=== PATIENT | female | born 1965 | race Caucasian/White ===

== ENCOUNTER 2016-07-09 09:17 | Outpatient (CLI) | payer OTHER | END 2016-07-09 09:18 | disposition home or self-care (01) | DX: Z12.31 Encounter for screening mammogram for malignant neoplasm of breast (principal) ==

== ENCOUNTER 2016-07-26 09:26 | Emergency (ER) | payer OTHER ==
[2016-07-26] MEDS ORDERED: HYDROcod/ACETAM 5/325 MG TABLET ONE (12:23)
== END 2016-07-26 13:45 | disposition home or self-care (01) ==
DX: S93.511A Sprain of interphalangeal joint of right great toe, initial encounter (principal); X50.9XXA Other and unspecified overexertion or strenuous movements or postures, initial encounter; Y93.H2 Activity, gardening and landscaping; Y92.007 Garden or yard of unspecified non-institutional (private) residence as the place of occurrence of the external cause; Y99.8 Other external cause status
CPT/HCPCS: 73630; 99281; 99283; A9270

== ENCOUNTER 2016-08-21 08:32 | Day surgery (SDC) | payer OTHER ==
[2016-08-21] MEDS ORDERED: LACTATED RINGERS 1,000 ML IV ONE (08:59)
[2016-08-21] MEDS ORDERED: fentaNYL 250 MCG/5 ML VIAL IVP ONE (10:30)
[2016-08-21] MEDS ORDERED: MIDAZOLAM 2 MG/2 ML VIAL IVP ONE (10:30)
== END 2016-08-21 08:33 | disposition home or self-care (01) ==
PROC: 0DBN8ZX Excision of Sigmoid Colon, Via Natural or Artificial Opening Endoscopic, Diagnostic (ICD-10-PCS; 2016-08-21)
PROC: 0DBH8ZX Excision of Cecum, Via Natural or Artificial Opening Endoscopic, Diagnostic (ICD-10-PCS; principal; 2016-08-21 09:30)
DX: Z12.11 Encounter for screening for malignant neoplasm of colon (principal); D12.5 Benign neoplasm of sigmoid colon; D12.0 Benign neoplasm of cecum; K64.8 Other hemorrhoids; Z83.71 Family history of colonic polyps; E55.9 Vitamin D deficiency, unspecified; K21.9 Gastro-esophageal reflux disease without esophagitis; Z83.3 Family history of diabetes mellitus; F17.210 Nicotine dependence, cigarettes, uncomplicated
CPT/HCPCS: 45380; 45385; J3010; J7120

== ENCOUNTER 2017-07-02 12:00 | Outpatient (CLI) | payer OTHER | END 2017-07-02 12:01 | disposition home or self-care (01) | LOC: LAB.R 12:00 | PROVIDERS: ATTEND Physician Assistant Medical | DX: R10.9 Unspecified abdominal pain (principal) | CPT/HCPCS: 87086 ==

== ENCOUNTER 2017-07-02 14:59 | Outpatient (CLI) | payer OTHER ==
--- NOTE | 2017-07-03 09:04 | CT Report ---
DATE OF SERVICE: 07/02/[address] WITHOUT CONTRAST: 07/02/2017 COMPARISON: None INDICATION: Right flank pain. TECHNIQUE: Noncontrast axial imaging of the abdomen and pelvis with coronal and sagittal reformats. In accordance with CT protocol optimization, one or more of the following dose reduction techniques were utilized for this exam: Automated exposure control, adjustment of mA and/or KV based on patient size, or use of iterative reconstructive technique. FINDINGS: Limited lung bases are grossly unremarkable, apart from a small pulmonary cyst on the left. The liver, spleen, pancreas, and adrenal glands appear unremarkable on noncontrast imaging. The kidneys appear unremarkable without evidence of stones or mass in the absence of contrast. No hydronephrosis. No ureteral bladder stones are seen. No abdominal mass or adenopathy. No bone lesions. Dysplastic rib versus old left rib fracture is noted, however. No soft tissue abnormalities. IMPRESSION: There are no CT findings to suggest a cause of the patient's symptoms. TD: 07/02/2017 21:32 GERRI
== END 2017-07-02 15:00 | disposition home or self-care (01) ==
LOC: DI 14:59
PROVIDERS: ATTEND Physician Assistant Medical
DX: R10.9 Unspecified abdominal pain (principal)
CPT/HCPCS: 74176; 87086

== ENCOUNTER 2017-09-01 08:31 | Outpatient (CLI) | payer OTHER ==
--- NOTE | 2017-09-02 17:41 | Mammography Report ---
DIGITAL SCREENING MAMMOGRAM: 09/01/2017 CLINICAL INDICATION: A 52-year-old for screening. COMPARISON: 06/2016, 08/2014, 07/2008. TECHNIQUE: Routine CC and MLO projections were obtained of the breasts. FINDINGS: Parenchymal tissue within both breasts is heterogeneously dense, which may lower the sensitivity of mammography; however, there are no dominant masses, suspicious microcalcifications, or secondary signs of malignancy. In comparison to the previous studies, there are no significant changes. ASSESSMENT: NO MAMMOGRAPHIC EVIDENCE OF MALIGNANCY. NO SIGNIFICANT INTERVAL CHANGES. RECOMMENDATION: Screening mammography is recommended annually. BIRADS category 1 - negative. STANDARD QUALIFYING STATEMENTS: 1. This examination was reviewed with the aid of Computed-Aided Detection (CAD). 2. A negative or benign imaging report should not delay biopsy if clinically suspicious findings are present. Consider surgical consultation if warranted. More than 5% of cancers are not identified by imaging. 3. Dense breasts may obscure an underlying neoplasm. TD: 09/02/2017 17:40
== END 2017-09-01 08:32 | disposition home or self-care (01) ==
LOC: DI 08:31
PROVIDERS: ATTEND Physician Assistant Medical
DX: Z12.31 Encounter for screening mammogram for malignant neoplasm of breast (principal)
CPT/HCPCS: 77067

== ENCOUNTER 2017-09-21 09:00 | Outpatient (CLI) | payer OTHER ==
[2017-09-21 12:35] LABS: CHOL/HDL RATIO 5.4 (<4.4); CHOLESTEROL 249 mg/dL; HDL CHOLESTEROL 46 mg/dL; LDL CHOLESTEROL,CALCULATED 183 mg/dL; VLDL CHOLESTEROL 20 mg/dL
== END 2017-09-21 09:01 | disposition home or self-care (01) ==
LOC: LAB.WCP 09:00
PROVIDERS: ATTEND Physician Assistant Medical
DX: E78.5 Hyperlipidemia, unspecified (principal)
CPT/HCPCS: 36415; 80061; 83721

== ENCOUNTER 2017-09-28 09:29 | Outpatient (CLI) | payer OTHER ==
[2017-09-28 12:41] LABS: ALBUMIN 4.2 g/dL (3.2-5.5); ALBUMIN/GLOBULIN RATIO 1.3 (1.0-2.2); BILIRUBIN,TOTAL 0.5 mg/dL (0.2-1.0); CREATININE 0.9 mg/dL (0.4-1.0); TOTAL PROTEIN 7.5 g/dL (6.7-8.2)
== END 2017-09-28 09:30 | disposition home or self-care (01) ==
LOC: LAB.WCP 09:29
PROVIDERS: ATTEND Physician Assistant Medical
DX: R74.8 Abnormal levels of other serum enzymes (principal)
CPT/HCPCS: 36415; 80053

== ENCOUNTER 2019-01-11 11:32 | Outpatient (CLI) | payer OTHER ==
--- NOTE | 2019-01-11 14:51 | XRAY Report ---
Reason: ARTHRITIS, HAND Procedure Date: 01/11/2019 Accession Number: [id number] / [id number] Procedure: WCP - Hand 3 View RT CPT Code: FULL RESULT: EXAM: RIGHT HAND RADIOGRAPHY EXAM DATE: 01/11/2019 11:47 AM. CLINICAL HISTORY: Chronic pain. No known injury. COMPARISON: HAND 3 VIEW BILAT 07/01/2016 10:48 AM. TECHNIQUE: 3 views. FINDINGS: Bones: Normal. No fractures or bone lesions. Joints: Normal. No subluxations. Soft Tissues: Normal. No soft tissue swelling. IMPRESSION: Normal hand radiography. RADIA
== END 2019-01-11 11:33 | disposition home or self-care (01) ==
LOC: DI.WCP 11:32
PROVIDERS: ATTEND Physician Assistant Medical
DX: M19.041 Primary osteoarthritis, right hand (principal)

== ENCOUNTER 2019-01-11 11:32 | Outpatient (CLI) | payer OTHER ==
--- NOTE | 2019-01-11 14:51 | XRAY Report ---
Reason: ARTHRITIS, HAND Procedure Date: 01/11/2019 Accession Number: [id number] / [id number] Procedure: WCP - Foot 2 View LT CPT Code: FULL RESULT: EXAM: LEFT FOOT RADIOGRAPHY EXAM DATE: 01/11/2019 11:47 AM. CLINICAL HISTORY: Heel pain. COMPARISON: None. TECHNIQUE: 2 views. FINDINGS: Bones: Moderate inferior calcaneal spurring. No fractures or bone lesions. Joints: Normal. No subluxations. Soft Tissues: Normal. No soft tissue swelling. IMPRESSION: Inferior calcaneal spurring. RADIA
== END 2019-01-11 11:33 | disposition home or self-care (01) ==
LOC: DI.WCP 11:32
PROVIDERS: ATTEND Physician Assistant Medical
DX: M77.32 Calcaneal spur, left foot (principal); M19.041 Primary osteoarthritis, right hand

== ENCOUNTER 2019-01-24 10:09 | Outpatient (CLI) | payer OTHER ==
--- NOTE | 2019-01-25 11:50 | XRAY Report ---
Reason: HAND INFECTION Procedure Date: 01/24/2019 Accession Number: [id number] / [id number] Procedure: WCP - Hand 3 View RT CPT Code: FULL RESULT: EXAM: RIGHT HAND RADIOGRAPHY EXAM DATE: 01/24/2019 10:17 AM. CLINICAL HISTORY: HAND INFECTION. COMPARISON: HAND 3 VIEW RT 01/11/2019 11:34 AM. TECHNIQUE: 3 views. FINDINGS: Bones: No acute or healed fractures. No periostitis or erosive changes. Joints: Normal. No subluxations. Soft Tissues: Swelling and subcutaneous emphysema noted at the base of the right. No unexpected radiopaque foreign bodies. IMPRESSION: 1. No fracture or malalignment. 2. Soft tissue swelling and subcutaneous emphysema at the base of the right thumb. No neck activity Pe from bodies. 3. No radiographic findings concerning for osteomyelitis. 3. If patient remains symptomatic, recommend follow up in 10-14 days. RADIA
== END 2019-01-24 10:10 | disposition home or self-care (01) ==
LOC: DI.WCP 10:09
PROVIDERS: ATTEND Physician Assistant
DX: L08.9 Local infection of the skin and subcutaneous tissue, unspecified (principal); M79.89 Other specified soft tissue disorders

== ENCOUNTER 2019-11-29 09:16 | Outpatient (CLI) | payer OTHER ==
[2019-11-29] MEDS ORDERED: GADOBUTROL 7.5 MMOL/7.5 ML VIAL ONE (09:30)
[2019-11-29] MEDS ORDERED: BUFFERED LIDOCAINE 10 ML SYRINGE ONE (09:30)
[2019-11-29] MEDS ORDERED: IOPAMIDOL-370 100 ML VIAL IVP ONE (10:31)
[2019-11-29] MEDS ORDERED: BUFFERED LIDOCAINE 10 ML SYRINGE IU ONE ×2 (10:31)
[2019-11-29] MEDS ORDERED: GADOBUTROL 7.5 MMOL/7.5 ML VIAL IVP ONE (10:31)
--- NOTE | 2019-11-29 15:40 | MRI Report ---
Reason: RT KNEE PAIN Procedure Date: 11/29/2019 Accession Number: [id number] / [id number] Procedure: MRI - Arthrogram Knee RT CPT Code: Final Report FULL RESULT: PROCEDURE: Arthrogram Knee RT INDICATIONS: RT KNEE PAIN TECHNIQUE: After the administration of 30 mL of dilute intra-articular Gadolinium contrast, sagittal T1 spin echo with fat saturation and PD fast spin echo with fat saturation, coronal T1 spin echo with and without fat saturation, coronal T2 fast spin echo with fat saturation, axial PD fast spin echo with fat saturation through the knee. COMPARISON: None available. FINDINGS: Image quality: There is mild motion artifact. Menisci: There is a vertically oriented longitudinal tear in the posterior horn of the medial meniscus. Mild radial tearing is also demonstrated along the free edge in the posterior horn. There is degenerative signal along the free edge in the body of the lateral meniscus suggestive of mild degenerative tearing. The meniscal root ligaments appear intact. Cruciate ligaments: The anterior and posterior cruciate ligaments appear intact. Medial structures: The medial collateral ligament appears intact. The semimembranosus tendon insertions appear intact. Visualized portions of the pes anserinus tendons appear normal. No abnormal bursal fluid. Lateral structures: The fibular collateral ligament and biceps femoris tendon appear intact. The popliteal tendon and the meniscofemoral ligaments appear intact. Anterior structures: The quadriceps and patellar tendons appear intact. Patellar alignment is normal. No femoral trochlear dysplasia or ventral trochlear prominence. No edema in the infrapatellar fat pad. There is mild prepatellar edema. Bones and cartilage: No bone marrow contusions or fractures. There is mild to moderate cartilage thinning within the medial compartment with superficial chondral fraying. In the lateral compartment, there is mild superficial chondral irregularity. In the patellofemoral compartment, there is also mild superficial chondral irregularity. Joint space: No suspicious filling defects within the joint space to suggest a joint body. No Magaña?s cyst. Normal appearing synovial plicae are incidentally noted. IMPRESSION: 1. Complex tearing of the posterior horn of the medial meniscus as described. Mild degenerative tearing along the free edge of the lateral meniscus also demonstrated. 2. Mild cartilage degeneration, most prominent in the medial compartment. Reviewed by: Warren Pereyra MD on 11/29/2019 3:39 PM PDT Approved by: Warren Pereyra MD on 11/29/2019 3:39 PM PDT Station ID: [id number]
--- NOTE | 2019-11-29 17:21 | XRAY Report ---
Reason: RT KNEE PAIN Procedure Date: 11/29/2019 Accession Number: [id number] / [id number] Procedure: FL - Arthrogram Needle Placement CPT Code: Final Report FULL RESULT: PROCEDURE: Arthrogram Needle Placement INDICATIONS: RT KNEE PAIN FLUORO TIME: FLUORO TIME: 0.1 MIN and NUMBER IMAGES: 2 TECHNIQUE: The indications, alternatives, benefits, risks, and complications of the procedure were explained to the patient. Written informed consent was obtained and placed in the chart. The knee was examined fluoroscopically, and a site chosen for knee joint injection. The skin was prepped and draped in the usual fashion and 1% Lidocaine infiltrated from the skin down to the articular surface. A hypodermic needle was then introduced into the joint and iodinated contrast media was instilled to confirm the intra-articular needle tip placement. This was followed by approximately 30 mL dilute solution of a gadolinium containing MR contrast agent. The needle was removed and a bandage was applied. An Joselo wrap was then applied around the knee joint to keep the contrast from collecting in the suprapatellar recess. The patient experienced no complications throughout the procedure and left the fluoroscopic suite in no apparent distress. FINDINGS: Single fluoroscopic spot image demonstrates intra-articular location of injected iodinated contrast. IMPRESSION: Successful fluoroscopically guided administration of dilute Gadolinium solution into the knee joint for MR arthrogram. Reviewed by: Warren Pereyra MD on 11/29/2019 11:19 AM PDT Approved by: Warren Pereyra MD on 11/29/2019 11:19 AM PDT Station ID: [id number]
== END 2019-11-29 09:17 | disposition home or self-care (01) ==
LOC: DI 09:16
PROVIDERS: ATTEND Registered Nurse
DX: M23.221 Derangement of posterior horn of medial meniscus due to old tear or injury, right knee (principal); M23.261 Derangement of other lateral meniscus due to old tear or injury, right knee; M23.8X1 Other internal derangements of right knee
CPT/HCPCS: 27369; 73722; 77002; A9585; Q9967

== ENCOUNTER 2020-04-17 09:00 | Outpatient (CLI) | payer OTHER ==
[2020-04-17 12:31] LABS: BASOPHILS % (AUTO) 0.1 %; EOSINOPHILS % (AUTO) 0.1 %; HGB - HEMOGLOBIN 13.5 g/dL (12.0-16.0); LYMPHOCYTES # (AUTO) 1.9 10^3/uL (1.5-3.5); LYMPHOCYTES % (AUTO) 16.1 %; MEAN CORPUSCULAR HEMOGLOBIN 28.6 pg (27.0-31.0); MEAN CORPUSCULAR HGB CONC 31.9 g/dL (32.0-36.0); MEAN CORPUSCULAR VOLUME 89.6 fL (81.0-99.0); MONOCYTES # (AUTO) 0.6 10^3/uL (0.0-1.0); MONOCYTES % (AUTO) 5.3 %; NEUTROPHILS # (AUTO) 9.4 10^3/uL (1.5-6.6); NEUTROPHILS % (AUTO) 77.8 %; PLT - PLATELET COUNT 494 10^3/uL (130-450); RED BLOOD COUNT 4.72 10^6/uL (4.20-5.40); RED CELL DISTRIBUTION WIDTH 13.9 % (12.0-15.0)
[2020-04-17 12:41] LABS: ALBUMIN 4.3 g/dL (3.2-5.5); ALBUMIN/GLOBULIN RATIO 1.3 (1.0-2.2); BILIRUBIN,TOTAL 0.6 mg/dL (0.2-1.0); CALCIUM 9.2 mg/dL (8.5-10.3); CREATININE 0.9 mg/dL (0.4-1.0); TOTAL PROTEIN 7.5 g/dL (6.7-8.2)
== END 2020-04-17 23:59 | disposition home or self-care (01) ==
LOC: LAB.WCP 09:00
PROVIDERS: ATTEND Physician Assistant Medical
DX: L50.1 Idiopathic urticaria (principal)
CPT/HCPCS: 36415; 80053; 85025

== ENCOUNTER 2020-04-17 10:05 | Outpatient (CLI) | payer OTHER ==
--- NOTE | 2020-04-17 12:07 | XRAY Report ---
PROCEDURE: Chest 2 View X-Ray INDICATIONS: RHONCHI ON EXAM TECHNIQUE: 2 view(s) of the chest. COMPARISON: None. FINDINGS: Surgical changes and devices: None. Lungs and pleura: No pleural effusions or pneumothorax. Lungs are clear. Mediastinum: Mediastinal contours are normal. Heart size is normal. Bones and chest wall: No suspicious bony abnormalities. Soft tissues appear unremarkable. IMPRESSION: Chest without acute cardiopulmonary abnormalities. No focal airspace disease. Reviewed by: Alessandro Alvarado MD on 04/17/2020 12:05 PM PDT Approved by: Alessandro Alvarado MD on 04/17/2020 12:05 PM PDT Station ID: [id number]
== END 2020-04-17 10:06 | disposition home or self-care (01) ==
LOC: DI 10:05
PROVIDERS: ATTEND Physician Assistant Medical
DX: R09.89 Other specified symptoms and signs involving the circulatory and respiratory systems (principal); L50.1 Idiopathic urticaria
CPT/HCPCS: 36415; 71046; 80053; 85025

== ENCOUNTER 2020-08-23 13:45 | Outpatient (CLI) | payer OTHER ==
--- NOTE | 2020-08-23 14:49 | XRAY Report ---
PROCEDURE: Shoulder 3 View BILAT INDICATIONS: BILATERAL SHOULDER PAIN TECHNIQUE: 3 views of the shoulder were acquired. COMPARISON: None. FINDINGS: Bones: No fractures or dislocations. No suspicious bony lesions. Visualized ribs appear intact. T here is severe bilateral acromioclavicular degenerative narrowing. Soft tissues: No suspicious soft tissue calcifications. Bilateral calcific tendinitis is present. IMPRESSION: Severe acromioclavicular degenerative narrowing. Reviewed by: Ava Torrez MD on 08/23/2020 1:48 PM [facility] Approved by: Ava Torrez MD on 08/23/2020 1:48 PM [facility] Station ID: [id number]
== END 2020-08-23 23:59 | disposition home or self-care (01) ==
LOC: DI.N 13:45
PROVIDERS: ATTEND Physician Assistant
DX: M19.012 Primary osteoarthritis, left shoulder (principal); M19.011 Primary osteoarthritis, right shoulder

== ENCOUNTER 2020-09-06 09:14 | Outpatient (CLI) | payer OTHER ==
[2020-09-06] MEDS ORDERED: BUFFERED LIDOCAINE 10 ML SYRINGE ONE (09:33)
[2020-09-06] MEDS ORDERED: ROPIVACAINE 0.5% PF 20 ML AMPULE ONE (09:33)
[2020-09-06] MEDS ORDERED: iohexoL-240 20 ML VIAL IVP ONE (10:18)
[2020-09-06] MEDS ORDERED: ROPIVACAINE 0.5% PF 20 ML AMPULE EP ONE (10:19)
[2020-09-06] MEDS ORDERED: BUFFERED LIDOCAINE 10 ML SYRINGE IU ONE (10:20)
[2020-09-06] MEDS ORDERED: methylPREDNISolone ACETATE 80 MG/ML VIAL IM ONE (10:21)
--- NOTE | 2020-09-06 10:54 | XRAY Report ---
PROCEDURE: Inj/Aspiration Major Joint INDICATIONS: BILATERAL SHOULDER JOINT PAIN CONTRAST: 5 cc Omnipaque FLUORO TIME: FLUORO TIME: 42 sec and NUMBER IMAGES: 2 TECHNIQUE: The indications, alternatives, benefits, risks, and complications of the procedure were explained to the patient. Written informed consent was obtained and placed in the chart. The patient was placed in an appropriate position on the fluoroscopy table, and a site was chosen for percutaneous access un niya fluoroscopic guidance. Local anesthetic was administered using a 1% lidocaine solution. A hypod ermic or spinal needle was then used to access the glenohumeral joints. Intra-articular location of t he needle tip was confirmed by injecting a small amount of contrast, followed by steroid administrati on. The needle was then withdrawn, and a bandage applied to the puncture site. FINDINGS: Joint injected: joint Medications injected: 1 mL of Depo-Medrol and 5 mL 0.5% Ropivacaine into each glenohumeral joint. Complications: None. IMPRESSION: Successful fluoroscopically guided administration of steroid and anaesthetic solution into the bilate ral glenohumeral joints. Reviewed by: Gabo Todd MD on 09/06/2020 10:53 AM [facility] Approved by: Gabo Todd MD on 09/06/2020 10:53 AM PST Station ID: [id number]
== END 2020-09-06 09:15 | disposition home or self-care (01) ==
LOC: DI 09:14
PROVIDERS: ATTEND Physician Assistant
DX: M25.511 Pain in right shoulder (principal); M25.512 Pain in left shoulder
CPT/HCPCS: 20610; Q9966

== ENCOUNTER 2022-09-04 13:07 | Emergency (ER) | payer OTHER ==
--- NOTE | 2022-09-04 13:24 | ED Physician Documentation ---
PD HPI UPPER EXT INJURY - Stated complaint Stated Complaint: R HAND PAIN,SWELLING - Chief complaint Chief Complaint: Ext Problem - History obtained from History obtained from: Patient - History of Present Illness Location: Right, Wrist, Hand Type of injury: No: Fall, Twist Where injury occurred: Other (The patient is not aware of a particular injury pe r se. She is 2 weeks post shoulder surgery with shoulder replacement. She has been in a sling with an abduction cushion. Minimal motion. She started with redness pain and swelling on the dorsum of the wrist 2 days ago and is steadily worse.) Timing - onset: How many days ago (2) Timing - duration: Days (2) Timing - details: Gradual onset, Still present Worsened by: Moving, Palpating Associated symptoms: Swelling, Discolored (red). No: Weakness, Numbness Similar symptoms before: Has not had sx before Recently seen: Surgery (shoulder replacement 2 weeks ago) Review of Systems Constitutional: denies: Fever, Chills Nose: denies: Rhinorrhea / runny nose Throat: denies: Sore throat Respiratory: denies: Cough Skin: denies: Rash, Lesions Neurologic: denies: Focal weakness, Numbness PD PAST MEDICAL HISTORY - Past Medical History Cardiovascular: None Respiratory: None Endocrine/Autoimmune: None GI: None : None HEENT: Chronic vision loss Psych: Anxiety Musculoskeletal: Other Derm: None - Past Surgical History /[employer]: section, LEEP (Cervical surgery) - Present Medications Home Medications: Ambulatory Orders Medication Instructions Recorded Confirmed raNITIdine [Zantac] 150 mg PO BID 08/06/15 09/04/22 Nicotine [Nicoderm Cq] 1 each TD DAILY 08/20/16 09/04/22 Cyclosporine, Modified 100 mg PO BID 09/04/22 09/04/22 [Cyclosporine Modified] oxyCODONE [Roxicodone] 5 mg PO Q4-6H PRN #20 tablet 09/04/22 - Allergies Allergies/Adverse Reactions: Allergies Allergy/AdvReac Type Severity Reaction Status Date / Time No Known Drug Allergies Allergy Verified 09/04/22 13:15 - Social History Does the pt smoke?: Yes Smoking Status: Current every day smoker PD ED PE NORMAL - Vitals Vital signs reviewed: Yes - General General: Alert and oriented X 3, Well developed/nourished - Derm Derm: Normal color, Warm and dry, Other (The patient is wearing a sling and has her arm slightly abducted with a cushion. The incision at the right shoulder is good appearing without any signs of infection. The axilla is not tender. Do rsum of the hand shows local redness swelling and marked tenderness over the proximal carpals.) - Neuro Neuro: No motor deficit, No sensory deficit, Other (There is good color and capillary refill in the fingertips. Normal pulses at the wrist.) Results - Vitals Vitals: Vital Signs - 24 hr 09/04/22 13:10 Temperature 36.6 C Heart Rate 107 H Respiratory 16 Rate Blood Pressure 140/97 H O2 Saturation 97 Oxygen O2 Source Room air - Labs Labs: Laboratory Tests 09/04/22 09/04/22 09/04/22 13:56 13:56 13:56 WBC 10.2 RBC 4.45 Hgb 12.8 Hct 39.2 MCV 88.1 MCH 28.8 MCHC 32.7 RDW 13.6 Plt Count 389 MPV 9.6 Neut # (Auto) 7.0 H Lymph # (Auto) 2.4 [place] # (Auto) 0.7 Eos # (Auto) 0.0 Baso # (Auto) 0.0 Absolute Nucleated RBC 0.00 Nucleated RBC % 0.0 ESR 19 Sodium 139 Potassium 3.9 Chloride 103 Carbon Dioxide 27 Anion Gap 9.0 BUN 18 Creatinine 1.0 Estimated GFR (MDRD) 57 L Glucose 111 H Uric Acid 4.3 Calcium 9.6 Total Bilirubin 0.2 AST 27 ALT 31 Alkaline Phosphatase 78 Total Protein 7.7 Albumin 4.2 Globulin 3.5 Albumin/Globulin Ratio 1.2 Lipase 39 - Rads (name of study) duplex right upper arm Relevant Findings:: Prelim report reviewed (no DVT), See rad report right wrist Relevant Findings:: Prelim report reviewed, EMP independent interpretation of test (arthritic thumb MCP. No changes at wrist. ), See rad report PD Medical Decision Making - ED course Complexity details: considered differential, d/w patient Reviewed Lab Results: The ultrasound of the veins was ordered and done by heat treat technician with report of no DVT. There is local swelling in the area of the pain but no fluid collection to suggest abscess. The white count was ordered and reviewed and in the normal range. Sed rate was ordered and reviewed and in the normal range. Basic chemistry panel was normal as well. X-ray of the hand did not show any acute bony abnormalities. There are some arthritis at the thumb MCP but not really at the wrist. Considerations therefore have excluded DVT, likely infection, local injury. Considerations remaining would be tendinitis at the area or potentially gout given the excess visit tenderness concurrent with the redness and warmth. She has not had gout before so I do not think extensive work-up is needed if this is an isolated episode. ED course: The patient is 2 weeks postop shoulder replacement and has been in a sling with an abduction Don and now has swelling redness and tenderness on the dorsum of the wrist. This is just distal to the sling and and is a point where her wrist drops a little bit so there could be some element of tendinitis in that area. She did not have any local injury but we can get an x-ray to ensure bony abnormalities are not present. Otherwise main concern certainly is DVT of the upper extremity and we will get an ultrasound. There is no skin lesions to presume a nidus for infection but can get a blood count and a sed rate as well. Departure - Departure Disposition: 01 Home, Self Care Clinical Impression: Right wrist pain, Right wrist tendonitis Condition: Stable Record reviewed to determine appropriate education?: Yes Follow-Up: Jess Gilliland PA-C [Primary Care Provider] - Prescriptions: oxyCODONE [Roxicodone] 5 mg PO Q4-6H PRN #20 tablet PRN Reason: Pain Comments: Your ultrasound is normal without any signs of blood clots. There is swelling noted in that area but no fluid collection to suggest abscess or such. Your white count on blood test is normal as is your sed rate. These would be denoting less likely to be an infectious cause. There is also no skin lesions to act as an introduction point. Considerations therefore are some inflammation of the tendons or joints of the wrist related to the position of it from the sling and such. It is also possible to develop an inflammatory reaction such as gout isolated to the area. The common treatment for these would be anti-inflammatories and pain medicine a nd time. I would have you continue your ibuprofen doses twice daily. To that add Tylenol every 4-6 hours if needed for pain or oxycodone if needed for worse pain. I wrote prescriptions for this and sent it to [facility] pharmacy in [place]. I am prescribing a short course of narcotic pain medication for you. These are potentially dangerous and addictive medications that should be used carefully. These medications may constipate you. Take an [id number]-[id number] stool softener such as docusate twice daily with plenty of water while taking these medications. If you go 24 hours without a bowel movement, take erox-qyh-kahdymu MiraLAX, per package instructions. Do not drink or drive while taking these medications. If you received narcotic or sedating medications while in the emergency depart ment do not drive for 24 hours. Store this medication in a safe, secure place and out of reach of children. It is a violation of federal law to give or sell this medication to another person or to use in a manner other than prescribed. The ED will not refill narcotic prescriptions, including prescriptions lost or stolen. You can dispose of unwanted medications at the [facility] office or at several pharmacies such as [facility]. See how this does over the next few days. If its not improving readily, consideration would be changing to a different anti-inflammatory or potentially steroid or anti-inflammatory. Recheck if not improving well over the next few days.
[2022-09-04] MEDS: KETOROLAC 30 MG/ML VIAL IM STA (13:59)
[2022-09-04] MEDS: HYDROmorphone 1 MG/ML CARPUJECT IM STA (13:59)
[2022-09-04 14:03] LABS: BASOPHILS % (AUTO) 0.4 %; EOSINOPHILS % (AUTO) 0.3 %; HCT - HEMATOCRIT 39.2 % (37.0-47.0); HGB - HEMOGLOBIN 12.8 g/dL (12.0-16.0); LYMPHOCYTES # (AUTO) 2.4 10^3/uL (1.5-3.5); LYMPHOCYTES % (AUTO) 23.1 %; MEAN CORPUSCULAR HEMOGLOBIN 28.8 pg (27.0-31.0); MEAN CORPUSCULAR HGB CONC 32.7 g/dL (32.0-36.0); MEAN CORPUSCULAR VOLUME 88.1 fL (81.0-99.0); MEAN PLATELET VOLUME 9.6 fL (7.9-10.8); MONOCYTES # (AUTO) 0.7 10^3/uL (0.0-1.0); MONOCYTES % (AUTO) 6.8 %; NEUTROPHILS % (AUTO) 69.1 %; PLT - PLATELET COUNT 389 10^3/uL (130-450); RED BLOOD COUNT 4.45 10^6/uL (4.20-5.40); RED CELL DISTRIBUTION WIDTH 13.6 % (12.0-15.0); WHITE BLOOD COUNT 10.2 x10^3/uL (4.8-10.8)
[2022-09-04 14:23] LABS: ALBUMIN 4.2 g/dL (3.2-5.5); ALBUMIN/GLOBULIN RATIO 1.2 (1.0-2.2); BILIRUBIN,TOTAL 0.2 mg/dL (0.2-1.0); CALCIUM 9.6 mg/dL (8.5-10.3); POTASSIUM 3.9 mmol/L (3.5-5.0); TOTAL PROTEIN 7.7 g/dL (6.7-8.2); URIC ACID 4.3 mg/dL (2.6-7.2)
[2022-09-04] MEDS: oxyCODONE 5 MG TABLET PO STA (15:09)
[2022-09-04] MEDS: ACETAMINOPHEN 325 MG TABLET PO STA (15:09)
[2022-09-04 15:20] VITALS: BP 147/109
--- NOTE | 2022-09-04 15:39 | XRAY Report ---
PROCEDURE: Wrist 3 View RT INDICATIONS: right forearm/wrist pain TECHNIQUE: 3 views of the wrist were acquired. COMPARISON: None FINDINGS: Bones: No fractures or dislocations. No suspicious bony lesions. Soft tissues: No suspicious soft tissue calcifications. IMPRESSION: No visualized acute fracture or dislocation. However, occult injury cannot be excluded. Recommend rui rt interval imaging follow-up in 7-10 days as clinically indicated for additional evaluation. Reviewed by: Ava Torrez MD on 09/04/2022 3:38 PM PST Approved by: Ava Torrez MD on 09/04/2022 3:38 PM [facility] Station ID: [id number]
--- NOTE | 2022-09-04 15:46 | Ultrasound Report ---
PROCEDURE: Duplex Ext Veins Right INDICATIONS: right wrist pain/swelling. recent shoulder surgery TECHNIQUE: Real-time imaging, as well as color and pulse Doppler interrogation, were performed of the lower extr emity deep veins from the inguinal ligament to the popliteal fossa. COMPARISON: None. FINDINGS: The deep veins are normally compressible, and free of intraluminal thrombus. Color and pu lse Doppler demonstrate normal phasic intraluminal flow. There is normal augmentation response to di stal compression maneuver. IMPRESSION: No deep venous thrombosis. Reviewed by: Ava Torrez MD on 09/04/2022 3:45 PM PST Approved by: Ava Torrez MD on 09/04/2022 3:45 PM PST Station ID: [id number]
== END 2022-09-04 15:19 | disposition home or self-care (01) ==
LOC: ED 13:07
DX: M77.8 Other enthesopathies, not elsewhere classified (principal); F17.200 Nicotine dependence, unspecified, uncomplicated
CPT/HCPCS: 36415; 73110; 80053; 83690; 84550; 85025; 85651; 93971; 96374; 99284; A9270; J1170

== ENCOUNTER 2023-02-27 09:12 | Emergency (ER) | payer OTHER ==
[2023-02-27 09:33] VITALS: O2SAT 98
--- NOTE | 2023-02-27 09:37 | ED Physician Documentation ---
PD HPI NECK PAIN - Stated complaint Stated Complaint: NECK/LT ARM PX, NAUSEA - Chief complaint Chief Complaint: General - History obtained from History obtained from: Patient - History of Present Illness Timing - onset: How many days ago (few) Timing - duration: Days (few) Timing - details: Abrupt onset (she has had some pains in neck intermittently. L ifted up her granddaughter 5 days ago and had onset of neck pain that has persisted with neck spasm/stiffness at times with ROM. No weakness/numbness in arms nor legs.) Location: Mid, Lower Quality: Pain, Sharp Associated symptoms: No: Fever, Weakness, Numbness Worsened by: Movement Contributing factors: Lifting, Twisting. No: Trauma Similar symptoms before: No diagnosis (arthritis in neck and has intermittent neck pains, but current pain more than prior. Has feeling of weakness for lifting head (no weakness of arms/legs).) Recently seen: Not recently seen Review of Systems Constitutional: denies: Fever, Chills Nose: denies: Rhinorrhea / runny nose, Congestion Throat: denies: Sore throat Cardiac: denies: Chest pain / pressure, Palpitations Respiratory: denies: Dyspnea, Cough GI: denies: Abdominal Pain Skin: denies: Rash, Lesions Neurologic: denies: Generalized weakness, Focal weakness, Numbness PD PAST MEDICAL HISTORY - Past Medical History Cardiovascular: None Respiratory: None Endocrine/Autoimmune: None GI: None : None HEENT: Chronic vision loss Psych: Anxiety Musculoskeletal: Other Derm: None - Past Surgical History Past Surgical History: Yes Ortho: Shoulder arthroplasty /[employer]: section, LEEP (Cervical surgery) - Present Medications Home Medications: Ambulatory Orders Medication Instructions Recorded Confirmed raNITIdine [Zantac] 150 mg PO BID 08/06/15 09/04/22 Nicotine [Nicoderm Cq] 1 each TD DAILY 08/20/16 09/04/22 Cyclosporine, Modified 100 mg PO BID 09/04/22 09/04/22 [Cyclosporine Modified] oxyCODONE [Roxicodone] 5 mg PO Q4-6H PRN #20 tablet 09/04/22 HYDROcod/ACETAM 5/325 [[place] 5/325] 1 ea PO Q6H PRN #15 tablet 02/27/23 Meloxicam [Mobic] 7.5 mg PO BID 10 Days #20 tablet 02/27/23 methocarbamoL [Robaxin] 500 mg PO TID PRN #30 tablet 02/27/23 - Allergies Allergies/Adverse Reactions: Allergies Allergy/AdvReac Type Severity Reaction Status Date / Time No Known Drug Allergies Allergy Verified 09/04/22 13:15 - Social History Does the pt smoke?: Yes Smoking Status: Current every day smoker PD ED PE NORMAL - Vitals Vital signs reviewed: Yes - General General: Alert and oriented X 3, Well developed/nourished - HEENT HEENT: Atraumatic - Neck Neck: Supple, no meningeal sign, No adenopathy, Other - Cardiac Cardiac: RRR, No murmur - Respiratory Respiratory: Clear bilaterally - Derm Derm: Normal color, Warm and dry - Neuro Neuro: Alert and oriented X 3, No motor deficit, No sensory deficit, Normal speech Results - Vitals Vitals: Vital Signs - 24 hr 02/27/23 02/27/23 09:19 12:52 Temperature 37.3 C Heart Rate 80 64 Respiratory 18 18 Rate Blood Pressure 150/113 H 159/104 H O2 Saturation 98 98 Oxygen O2 Source Room air PD Medical Decision Making - ED course Complexity details: reviewed results (no fractures. Has diffuse DJD. ), considered differential (strain of neck muscles, but had abrupt onset when lifted granddaughter. Continues with guarded ROM of the neck. ), d/w patient (I did do imaging based on mechanism and the feeling of pain on ROM. I discussed with her that the imaging did seem to fit with clinical concerns even though no neuro symptoms. ) ED course: neck pain and likely muscle strain but has pain with "holding head up" and was abrupt onset when lefted and she felt a twisting motion of neck. Can get imaging for concern of the abruptness. No neuro symptoms. CT done and no compressive deformities, no acute process per Rad report. Departure - Departure Disposition: 01 Home, Self Care Clinical Impression: Acute strain of neck muscle Qualifiers: Encounter type: initial encounter Qualified Code(s): S16.1XXA - Strain of muscle, fascia and tendon at neck level, initial encounter Condition: Stable Record reviewed to determine appropriate education?: Yes Instructions: ED Sprain Strain Neck Follow-Up: Jess Gilliland PA-C [Primary Care Provider] - Prescriptions: Meloxicam [Mobic] 7.5 mg PO BID 10 Days #20 tablet HYDROcod/ACETAM 5/325 [[place] 5/325] 1 ea PO Q6H PRN #15 tablet PRN Reason: Pain methocarbamoL [Robaxin] 500 mg PO TID PRN #30 tablet PRN Reason: Spasms Comments: Your CT scan shows some chronic degenerative changes but no acute fractures nor displacements. The lump feeling and pain in your neck feels like a muscle spasm. I would suggest a combination of some heat and stretching to reduce spasm and stiffness (what you have been doing, to continue it). To that add some regular anti-inflammatories. I wrote for a different 1 called meloxicam which is a longer half-life so you only need to take it twice daily with food. To that add Robaxin/methocarbamol muscle relaxant to help with stiffness and spasm. To that add Tylenol every 4-6 hours if needed for pain or hydrocodone/acetaminophen if needed for worse pain. I sent your prescriptions to the [facility] pharmacy. Follow-up if not improving well over the next several days and resolved by a week or so. I am prescribing a short course of narcotic pain medication for you. These are potentially dangerous and addictive medications that should be used carefully. These medications may constipate you. Take an [id number] stool softener such as docusate twice daily with plenty of water while taking these medications. If you go 24 hours without a bowel movement, take [id number] MiraLAX, per package instructions. Do not drink or drive while taking these medications. If you received narcotic or sedating medications while in the emergency department do not drive for 24 hours. Store this medication in a safe, secure place and out of reach of children. It is a violation of federal law to give or sell this medication to another person or to use in a manner other than prescribed. The ED will not refill narcotic prescriptions, including prescriptions lost or stolen. You can dispose of unwanted medications at the [facility]'s office or at several pharmacies such as [facility]. Forms: PCP List Discharge Date/Time: 02/27/23 12:53
[2023-02-27] MEDS ORDERED: ACETAMINOPHEN 500 MG TABLET PO STA (09:50)
[2023-02-27] MEDS ORDERED: methocarbamoL 500 MG TABLET PO STA (09:50)
--- NOTE | 2023-02-27 10:43 | CT Report ---
PROCEDURE: CERVICAL SPINE WO INDICATIONS: worse pain recent with abrupt twist mechanism TECHNIQUE: Noncontrast 3 mm thick sections acquired from the skull base to the T4 level. Sagittal and coronal r eformats were then constructed. For radiation dose reduction, the following was used: automated exp osure control, adjustment of mA and/or kV according to patient size. COMPARISON: None. FINDINGS: Image quality: Excellent. Bones: No acute fractures or dislocations. Visualized superior ribs are intact. There is straighte lizzie and mild reversal of the normal cervical lordosis. To millimeter grade 1 anterolisthesis is seen at C4-5. Multilevel disc space narrowing and degenerative endplate changes are seen and there is mul tilevel vertebral joint and facet hypertrophy. Soft tissues: Prevertebral soft tissues are normal in thickness. No paravertebral hematomas. No ap ical pneumothoraces. Mild edematous changes in the lung apices. IMPRESSION: No acute, displaced fracture or traumatic subluxation. Moderate multilevel spondylosis. Reviewed by: Frantz Edmond MD on 02/27/2023 10:41 AM PDT Approved by: Frantz Edmond MD on 02/27/2023 10:41 AM PDT Station ID: [id number]
[2023-02-27 12:58] VITALS: BP 159/104
== END 2023-02-27 12:53 | disposition home or self-care (01) ==
LOC: ED 09:12
DX: S16.1XXA Strain of muscle, fascia and tendon at neck level, initial encounter (principal); X50.0XXA Overexertion from strenuous movement or load, initial encounter; F17.200 Nicotine dependence, unspecified, uncomplicated; Z79.899 Other long term (current) drug therapy
CPT/HCPCS: 72125; 99283; 99284; A9270